=== PATIENT | male | born 1970 | race African-American/Black ===

== ENCOUNTER 2016-11-16 14:28 | Emergency (ER) | payer OTHER ==
[~2016-11-16] VITALS: Ht 180.3 cm; Wt 43.0 kg
[2016-11-16 14:30] VITALS: Ht 180.3 cm; Wt 43.0 kg
[2016-11-16] MEDS ORDERED: SOD CHLORIDE 0.9% 1,000 ML IV STA (14:57)
[2016-11-16] MEDS ORDERED: morphine 4 MG/ML VIAL IV STA (14:57)
[2016-11-16] MEDS ORDERED: ONDANSETRON 4 MG INJ IV STA (14:57)
[2016-11-16 15:20] LABS: BASOPHILS % 0.3 % (0.0-2.0); EOSINOPHILS % 0.6 % (0.0-7.0); HEMATOCRIT 38.1 % (42.0-52.0); HEMOGLOBIN 13.5 g/dl (14.0-18.0); LYMPHOCYTES # 1.8 10^3/ul (0.8-2.9); LYMPHOCYTES % 53.8 % (15.0-51.0); MEAN CORPUSCULAR HEMOGLOBIN 30.8 pg (29.0-33.0); MEAN CORPUSCULAR HGB CONC 35.4 g/dl (32.0-37.0); MEAN PLATELET VOLUME 9.6 fl (7.4-10.4); MONOCYTE # 0.4 10^3/ul (0.3-0.9); MONOCYTES % 11.1 % (0.0-11.0); NEUTROPHIL # 1.2 10^3/ul (1.6-7.5); NEUTROPHILS % 33.9 % (39.0-77.0); PLATELET COUNT 229 10^3/UL (140-415); RED BLOOD COUNT 4.38 10^6/ul (4.70-6.10); WHITE BLOOD COUNT 3.4 10^3/ul (4.8-10.8)
--- NOTE | 2016-11-16 15:30 | RADRPT ---
PROCEDURE: XR Chest. CLINICAL INDICATION: Shortness of breath. TECHNIQUE: A single portable view of the chest was obtained. COMPARISON: None FINDINGS: The cardiomediastinal silhouette is within normal limits. The lungs and pleural spaces are clear. The soft tissues and osseous structures are unremarkable. IMPRESSION: No acute cardiopulmonary disease. RPTAT: HPNM Physician Anoop Date Time Electronically viewed and signed by Nathen Vallejo Physician on 11/16/2016 15:29 /
[2016-11-16 16:00] LABS: ALANINE AMINOTRANSFERASE 56 IU/L (13-69); ALBUMIN 4.6 g/dl (3.3-4.9); ALBUMIN/GLOBULIN RATIO 1.48; ALKALINE PHOSPHATASE 69 IU/L (42-121); ANION GAP 21 (8-16); ASPARTATE AMINO TRANSFERASE 40 IU/L (15-46); BILIRUBIN,INDIRECT 0.1 mg/dl (0-1.1); BILIRUBIN,TOTAL 0.1 mg/dl (0.2-1.3); BLOOD UREA NITROGEN 10 mg/dl (7-20); CALCIUM 10.1 mg/dl (8.4-10.2); CARBON DIOXIDE 25 mmol/L (21-31); CHLORIDE 93 mmol/L (97-110); CREATININE 0.69 mg/dl (0.61-1.24); GLUCOSE 378 mg/dl (70-220); POTASSIUM 4.3 mmol/L (3.5-5.1); SODIUM 135 mmol/L (135-144); TOTAL PROTEIN 7.7 g/dl (6.1-8.1)
[2016-11-16 16:12] LABS: TROPONIN-I < 0.012 ng/ml (0.00-0.12)
[2016-11-16] MEDS ORDERED: INSULIN LISPRO 100 UNIT/ML VIAL SC STA (16:19)
--- NOTE | 2016-11-16 16:34 | RADRPT ---
PROCEDURE: CT Abdomen and Pelvis without intravenous contrast. CLINICAL INDICATION: Abdominal pain. History of pancreatitis. . TECHNIQUE: CT scan of the abdomen and pelvis without intravenous contrast was performed on a multi -slice CT scanner. Coronal and sagittal reformatted images were obtained from the axial source image s. Images were reviewed on a high-resolution PACS workstation. Total DLP = 224.9 mGy-cm. CTDIvol = 3.9 mGy. One or more of the following dose reduction techniques were used: Automated exposure control. Adjustment of the mA and/or kV according to patient size. Use of iterative reconstruction technique. COMPARISON: None. FINDINGS: CT abdomen and pelvis: The lung bases are clear. The heart size is normal in size. The liver is normal in size and densit y without focal mass or intrahepatic biliary dilatation. The spleen is normal in size and homogeneo us in density. The pancreas shows coarse calcifications throughout the parenchyma consistent with chronic calcific pancreatitis.. The gallbladder shows no evidence of stones or distension . The a drenal glands are normal. The kidneys are symmetrically unremarkable. No urolithiasis, obstructive uropathy, or solid mass lesion is seen. The stomach is partially collapsed, but is grossly unremarkable. The small bowels are unremarkable. The colon and rectum are normal. Retained feces and oral contrast seen throughout the colon. The terese endix is normal. There is no evidence of appendicitis or diverticulitis. The pelvic organs are nor mal. The bladder is distended. There is no abdominal or pelvic adenopathy, free fluid, free air, mas s or mesenteric inflammation. The aorta is normal in caliber with calcific atherosclerosis . The osseous structures are intact. No osteolytic or osteoblastic lesions are identified. The soft tissues are within normal limits. Lac k of IV and oral contrast as well as paucity of fat limits sensitivity of exam. IMPRESSION: 1. Chronic calcific pancreatitis. 2. Constipation. 3. Otherwise unremarkable noncontrast CT abdomen and pelvis without acute pathology identified. RPTAT: JJ .Jet Belel MD, MD Date Time Electronically viewed and signed by .Jet Belle MD, on 11/16/2016 16:34 .L/
[2016-11-16] MEDS ORDERED: ONDA4TAB8 PO (16:51)
--- NOTE | 2016-11-16 16:53 | ERD ---
ER Documentation Chief Complaint Date/Time DATE: 11/16/16 TIME: 16:53 Chief Complaint DIZZINESS , ABD PAIN , SYNCOPAL EPISODE TODAY HPI Patient is a 46-year-old male with pancreatitis and diabetes who presents with abdominal pain. He has had weakness and fatigue. He said that he passed out today. His symptoms started this morning. He said that he has been losing weight for the past 5 months. He denies rectal bleeding. Review of the emergency department information exchange shows visits to [facility] for similar complaints. He has been to the emergency department at [facility] 5 times per month for the past 3 months. He does not remember the name of his primary doctor. ROS All systems reviewed and are negative except as per history of present illness. Medications Home Meds Active Scripts Hydrocodone/Acetaminophen ([place] 10-325 Tablet) 1 Each Tablet, 1 TAB PO Q6H Y for PAIN, #7 TAB Prov:VICKY HERNANDEZ MD 11/16/16 Ondansetron Hcl* (Zofran*) 4 Mg Tablet, 4 MG PO Q8H Y for NAUSEA AND/OR VOMITING , #30 TAB Prov:VICKY HERNANDEZ MD 11/16/16 Allergies Allergies: Coded Allergies: No Known Allergy (Unverified , 10/06/13) PMhx/Soc Medical and Surgical Hx: pt denies Surgical Hx History of Surgery: No Anesthesia Reaction: No Hx Neurological Disorder: No Hx Respiratory Disorders: No Hx Cardiac Disorders: No Hx Psychiatric Problems: No Hx Miscellaneous Medical Probl: Yes (TYPE 2 DM, PANCREATITIS) Hx Alcohol Use: Yes (SOCIALLY) Hx Substance Use: No Hx Tobacco Use: Yes (2 TO 3 CIGARETTES PER DAY) Smoking Status: Current every day smoker FmHx Family History: No diabetes Physical Exam Vitals Vital Signs Date Time Temp Pulse Resp B/P Pulse Ox O2 Delivery O2 Flow Rate FiO2 11/16/16 14:58 97.7 87 13 120/95 99 Room Air 11/16/16 14:30 98.9 116 18 102/70 99 Physical Exam Const: Moderate distress secondary to pain Head: Atraumatic Eyes: Normal Conjunctiva ENT: Normal External Ears, Nose and Mouth. Neck: Full range of motion..~ No meningismus. Resp: Clear to auscultation bilaterally Cardio: Regular rate and rhythm, no murmurs Abd: Diffuse tenderness palpation without rebound or guarding Skin: No petechiae or rashes Back: No midline or flank tenderness Ext: No cyanosis, or edema Neur: Awake and alert Psych: Normal Mood and Affect Result Diagram: 11/16/16 1502 11/16/16 1502 Results 24 hrs Laboratory Tests Test 11/16/16 15:02 11/16/16 17:18 White Blood Count 3.410^3/ul Red Blood Count 4.3810^6/ul Hemoglobin 13.5g/dl Hematocrit 38.1% Mean Corpuscular Volume 87.0fl Mean Corpuscular Hemoglobin 30.8pg Mean Corpuscular Hemoglobin Concent 35.4g/dl Red Cell Distribution Width 12.0% Platelet Count 09628^3/UL Mean Platelet Volume 9.6fl Neutrophils % 33.9% Lymphocytes % 53.8% Monocytes % 11.1% Eosinophils % 0.6% Basophils % 0.3% Nucleated Red Blood Cells % 0.0/100WBC Neutrophils # 1.210^3/ul Lymphocytes # 1.810^3/ul Monocytes # 0.410^3/ul Eosinophils # 0.010^3/ul Basophils # 0.010^3/ul Nucleated Red Blood Cells # 0.010^3/ul Sodium Level 135mmol/L Potassium Level 4.3mmol/L Chloride Level 93mmol/L Carbon Dioxide Level 25mmol/L Anion Gap 21 Blood Urea Nitrogen 10mg/dl Creatinine 0.69mg/dl Glucose Level 378mg/dl Calcium Level 10.1mg/dl Total Bilirubin 0.1mg/dl Direct Bilirubin 0.00mg/dl Indirect Bilirubin 0.1mg/dl Aspartate Amino Transf (AST/SGOT) 40IU/L Alanine Aminotransferase (ALT/SGPT) 56IU/L Alkaline Phosphatase 69IU/L Troponin I < 0.012ng/ml Total Protein 7.7g/dl Albumin 4.6g/dl Globulin 3.10g/dl Albumin/Globulin Ratio 1.48 Lipase < 10U/L Bedside Glucose 233mg/dL Current Medications Medications (Trade) Dose Ordered Sig/Georgette Route PRN Reason Start Time Stop Time Status Last Admin Dose Admin Sodium Chloride (NS) 1,000 ml @ 1,000 mls/hr Q1H STAT IV 11/16/16 14:57 11/16/16 15:56 DC 11/16/16 15:30 Morphine Sulfate (morphine) 4 mg ONCE STAT IV 11/16/16 14:57 11/16/16 15:00 DC 11/16/16 15:30 Ondansetron HCl (Zofran Inj) 4 mg ONCE STAT IV 11/16/16 14:57 11/16/16 15:00 DC 11/16/16 15:29 Insulin Human Lispro (Humalog) 10 unit ONCE STAT SC 11/16/16 16:19 11/16/16 16:22 DC Procedures/MDM EKG read by me: Rate/Rhythm: Regular rate and rhythm at a rate of 66 Intervals: Normal Impression: No evidence of ischemia or arrhythmia CT scan shows chronic pancreatitis per radiology. Ultrasound shows no abnormality per radiology. Chest x-ray negative per radiology. Smoking Cessation Therapy: Pt. was lectured for greater than 3 minutes on the health risks of continued smoking and the benefits of cessation. Patient is a 46-year-old male with chronic pancreatitis who presents with abdominal pain and weight loss. I believe his weight loss is most likely related to decrease caloric intake but he will need outpatient evaluation for underlying cancer. The patient has no sign of obstruction or mass on his CT scan of the abdomen and pelvis. There are no signs of lung mass on the chest x- ray. The patient was given fluids, pain medicine, and Zofran and feels better. The patient will be discharged and will need to follow-up with Dr. Walsh from pain management within 24-48 hours. He can return sooner for any worsening symptoms. Short course of [place] and Zofran will be given. He had hyperglycemia but no signs of diabetic ketoacidosis. There is no sign of obvious infection. I doubt acute pancreatitis. I doubt appendicitis. Departure Diagnosis: Primary Impression: Chronic pancreatitis Pancreatitis type: unspecified pancreatitis type Qualified Code: K86.1 - Chronic pancreatitis, unspecified pancreatitis type Additional Impressions: Weight loss Abdominal pain Abdominal location: generalized Qualified Code: R10.84 - Generalized abdominal pain Condition: Fair Patient Instructions: Abdominal Pain, Losing Weight, Chronic Pancreatitis Referrals: KENDRA WALSH Additional Instructions: SPECIALIST: YOU HAVE A MEDICAL CONDITION WHICH REQUIRES YOU TO SEE A SPECIALIST WITHIN THE NEXT 1-2 DAYS. PLEASE FOLLOW UP WITH YOUR PRIMARY PHYSICIAN FOR REFFERAL.IF YOU DO NOT HAVE A PRIMARY CARE PHYSICIAN AND/OR YOU CAN NOT AFFORD TO SEE A PHYSICIAN THE FOLLOWING RESOURCES HAVE BEEN SUPPLIED TO YOU. IT IS YOUR RESPONSIBILITY TO BE SEEN BY THE SPECIALIST VICKY HERNANDEZ MD Nov 16, 2016 16:53
[2016-11-16] MEDS ORDERED: HYDR-902 PO (17:06)
[2016-11-16 18:00] VITALS: BP 130/88; PULSE 67; RESP 18; TEMP 98
[2016-11-16 18:21] LABS: ADD UMIC YES; UR ASCORBIC ACID NEGATIVE (NEGATIVE); UR BILIRUBIN (Dip) NEGATIVE (NEGATIVE); UR BLOOD (Dip) 1+ mg/dL (NEGATIVE); UR CLARITY CLEAR (CLEAR); UR COLOR STRAW (YELLOW); UR GLUCOSE (Dip) 3+ mg/dL (NEGATIVE); UR KETONES (Dip) TRACE mg/dL (NEGATIVE); UR LEUKOCYTE ESTERASE (Dip) NEGATIVE Leu/ul (NEGATIVE); UR NITRITE (Dip) NEGATIVE (NEGATIVE); UR RBC 0 /HPF (0-5); UR SPECIFIC GRAVITY (Dip) 1.015 (1.003-1.030); UR TOTAL PROTEIN (Dip) NEGATIVE (NEGATIVE); UR UROBILINOGEN (Dip) NEGATIVE (NEGATIVE)
== END 2016-11-16 18:05 | disposition home or self-care (01) ==
LOC: E/R 14:28
DX: K86.1 Other chronic pancreatitis (principal); R63.4 Abnormal weight loss; R10.84 Generalized abdominal pain; E11.9 Type 2 diabetes mellitus without complications
CPT/HCPCS: 36415; 71010; 74176; 76705; 80053; 81001; 82962; 83690; 84484; 85025; 93005; 96361; 96372; 96374; 96375; J2270; J2405; J7030; Z7502; Z7610